=== PATIENT | male | born 1945 | race Caucasian/White ===

== ENCOUNTER 2022-05-20 17:01 | Inpatient (IN) | payer MEDICARE ==
[~2022-05-20] VITALS: Ht 172.7 cm; Wt 106.0 kg
[2022-05-20] MEDS ORDERED: ALLO100T25 PO (17:44)
[2022-05-20] MEDS ORDERED: POTA-192 PO (17:44)
[2022-05-20] MEDS ORDERED: MAGN200T PO (17:44)
[2022-05-20] MEDS ORDERED: LOVA40TA2 PO (17:44)
[2022-05-20] MEDS ORDERED: INSU100V41 SUBCUT (17:44)
[2022-05-20] MEDS ORDERED: ATEN-169 PO (17:44)
[2022-05-20] MEDS ORDERED: ONDA4TAB12 PO (17:44)
[2022-05-20] MEDS ORDERED: LOSA25TA96 PO (17:44)
[2022-05-20] MEDS ORDERED: LEVO100T PO (17:44)
[2022-05-20] MEDS ORDERED: SOUR1000 PO (17:59)
[2022-05-20] MEDS ORDERED: MAGN250T11 PO (17:59)
[2022-05-20] MEDS ORDERED: FURO-150 PO (17:59)
[2022-05-20] MEDS ORDERED: ATOR40TA PO (17:59)
[2022-05-20] MEDS ORDERED: ALLO100T PO (17:59)
[2022-05-20] MEDS ORDERED: INSU100C4 SQ (18:01)
[2022-05-20 18:29] LABS: ALANINE AMINOTRANSFERASE 143 U/L (12-78); ALBUMIN 2.6 G/DL (3.4-5.0); ALBUMIN/GLOBULIN RATIO 0.6 (1.1-1.5); ALKALINE PHOSPHATASE 640 IU/L (46-116); ANION GAP 8 (8-16); ASPARTATE AMINO TRANSFERASE 147 U/L (10-37); BILIRUBIN,TOTAL 2.6 MG/DL (0.1-1.0); BLOOD UREA NITROGEN 66 MG/DL (7-18); BUN/CREATININE RATIO 18.3 (5.4-32.0); CALCIUM 8.5 MG/DL (8.5-10.1); CHLORIDE 108 MMOL/L (99-107); GLUCOSE 148 MG/DL (70-104); LIPASE 255 U/L (73-393); POTASSIUM 4.2 MMOL/L (3.5-5.1); SODIUM 141 MMOL/L (135-145); TOTAL CARBON DIOXIDE 24.9 MMOL/L (24-32); TOTAL PROTEIN 6.9 G/DL (6.4-8.2); eGFR 16 ML/MIN
[2022-05-20 18:35] LABS: BASOPHILS % (AUTO) 0.2 % (0-1); EOSINOPHILS % (AUTO) 0.1 % (0-6); HEMATOCRIT 33.7 % (42.0-52.0); HEMOGLOBIN 11.1 g/dl (14.0-17.9); LYMPHOCYTES # (AUTO) 0.6 X10'3 (1.1-4.8); LYMPHOCYTES % (AUTO) 4.1 % (21-51); MEAN CORPUSCULAR HEMOGLOBIN 31.3 PG (27.0-31.0); MEAN PLATELET VOLUME 8.4 FL (7.4-10.4); MONOCYTES # (AUTO) 0.7 X10'3 (0-0.9); MONOCYTES % (AUTO) 4.5 % (2-12); NEUTROPHILS # (AUTO) 14.1 X10'3 (1.8-7.7); NEUTROPHILS % (AUTO) 91.1 % (42-75); PLATELET COUNT 276 X10'3 (140-440); RED BLOOD COUNT 3.55 X10'6 (4.70-6.10); RED CELL DISTRIBUTION WIDTH 14.5 % (11.5-14.5); WHITE BLOOD COUNT 15.4 X10'3 (4.5-11.0)
--- NOTE | 2022-05-20 18:38 | NUR ---
Pt endorsed to Renetta GILMAN.
[2022-05-20] MEDS ORDERED: magnesium hydroxide 30ml (MOM) UD suspension PO PRN (19:50)
[2022-05-20] MEDS ORDERED: ondansetron/PF 4mg/2ml inj IV PRN (19:50)
[2022-05-20] MEDS ORDERED: magnesium Cl slow-release 64mg tablet PO PRN (19:50)
[2022-05-20] MEDS ORDERED: morphine 2 MG/ML inj. syringe IV PRN ×2 (19:50)
[2022-05-20] MEDS ORDERED: acetaminophen 325mg tablet PO PRN ×2 (19:50)
[2022-05-20] MEDS ORDERED: HYDROcodone/acetaminophen 10/325mg tab PO PRN (19:50)
[2022-05-20] MEDS ORDERED: potassium Cl 20 mEq SR tablet PO PRN ×2 (19:50)
[2022-05-20] MEDS ORDERED: magnesium 4gm in 100ml NS 100 ML IV PRN (19:50)
[2022-05-20] MEDS ORDERED: HYDROcodone/acetaminophen 5mg/325mg tablet PO PRN (19:50)
[2022-05-20] MEDS ORDERED: mag hydrox/Alum hydrox/simeth 30ml oral suspension PO PRN (19:50)
[2022-05-20] MEDS ORDERED: potassium Cl 40MEQ/1/2NS 520ml 520 ML IV PRN (19:50)
[2022-05-20] MEDS: K and/or MAG REPLACEMENT MC SCH (20:00)
[2022-05-20] MEDS ORDERED: piperacillin/tazo 3.375gm/50ml 50 ML IV SCH (20:00)
[2022-05-20] MEDS ORDERED: DEXTROSE 15 GM of carb/4 tabs (each vial/BOTTLE has 4 tablets) PO PRN ×2 (20:15)
[2022-05-20] MEDS ORDERED: dextrose 50%-water 50ml dispensing syringe IV PRN ×2 (20:15)
[2022-05-20] MEDS ORDERED: MESSAGE TO PHARMACY PO ONE (20:15)
[2022-05-20] MEDS ORDERED: glucagon, human recombinant 1mg kit SUBCUT PRN (20:15)
[2022-05-20] MEDS ORDERED: temazepam 15mg capsule PO PRN (21:00)
--- NOTE | 2022-05-20 21:01 | NUR ---
Received report from Danny Jackson in ER. Awaiting pt arrival Addendum: 05/20/22 at 2102 by Juan Steen RN Amended: Links added.
[2022-05-20] MEDS: normal saline 1000ml 1,000 ML IV SCH (21:05)
[2022-05-20] MEDS: metroNIDAZOLE-Flagyl 500mg/NS 100 ML IV SCH (21:05)
--- NOTE | 2022-05-20 21:25 | NUR ---
rECEIVED PT TO ROOM 344B. SIG OTHER AT BEDSIDE, ORIENTED TO ROOM AND ROUTINE. Addendum: 05/20/22 at 2319 by Juan Steen RN Amended: Links added.
[2022-05-20 22:00] VITALS: BP 114/56
[2022-05-20] MEDS: docusate sod 100mg capsule PO SCH (22:00)
[2022-05-20] MEDS: heparin, porcine 5000 units/ml vial SQ SCH (22:01)
[2022-05-20] MEDS: insulin glargine (Lantus) pen - multi-dose SQ SCH (22:01)
[2022-05-20 23:24] LABS: HEMOGLOBIN A1C 7.8 % (4.5-6.2)
[2022-05-21] VITALS (16 sets, daily range): BP systolic 102–155; BP diastolic 44–76
[2022-05-21] MEDS ORDERED: piperacillin/tazo 3.375gm/50 ML IV SCH (04:00)
[2022-05-21] MEDS: normal saline 1000ml 1,000 ML IV SCH ×2 (05:38→21:11)
[2022-05-21 06:02] LABS: ALANINE AMINOTRANSFERASE 135 U/L (12-78); ALBUMIN 2.3 G/DL (3.4-5.0); ALBUMIN/GLOBULIN RATIO 0.6 (1.1-1.5); ALKALINE PHOSPHATASE 500 IU/L (46-116); ANION GAP 7 (8-16); ASPARTATE AMINO TRANSFERASE 128 U/L (10-37); BILIRUBIN,TOTAL 3.1 MG/DL (0.1-1.0); BLOOD UREA NITROGEN 64 MG/DL (7-18); BUN/CREATININE RATIO 17.3 (5.4-32.0); CALCIUM 8.5 MG/DL (8.5-10.1); CHLORIDE 111 MMOL/L (99-107); POTASSIUM 4.3 MMOL/L (3.5-5.1); SODIUM 143 MMOL/L (135-145); TOTAL CARBON DIOXIDE 24.9 MMOL/L (24-32); eGFR 16 ML/MIN
[2022-05-21 06:07] LABS: GLUCOSE 46 MG/DL (70-104)
[2022-05-21 06:09] LABS: BASOPHILS % (AUTO) 0.3 % (0-1); EOSINOPHILS # (AUTO) 0.1 X10'3 (0-0.9); EOSINOPHILS % (AUTO) 0.7 % (0-6); HEMATOCRIT 30.9 % (42.0-52.0); HEMOGLOBIN 10.1 g/dl (14.0-17.9); LYMPHOCYTES # (AUTO) 1.6 X10'3 (1.1-4.8); LYMPHOCYTES % (AUTO) 11.4 % (21-51); MEAN CORPUSCULAR HEMOGLOBIN 30.7 PG (27.0-31.0); MEAN CORPUSCULAR HGB CONC 32.5 g/dL (33.0-36.5); MEAN CORPUSCULAR VOLUME 94.5 FL (78-98); MEAN PLATELET VOLUME 9.2 FL (7.4-10.4); MONOCYTES # (AUTO) 0.8 X10'3 (0-0.9); MONOCYTES % (AUTO) 5.9 % (2-12); NEUTROPHILS # (AUTO) 11.3 X10'3 (1.8-7.7); NEUTROPHILS % (AUTO) 81.7 % (42-75); PLATELET COUNT 241 X10'3 (140-440); RED BLOOD COUNT 3.27 X10'6 (4.70-6.10); RED CELL DISTRIBUTION WIDTH 14.3 % (11.5-14.5); WHITE BLOOD COUNT 13.9 X10'3 (4.5-11.0)
--- NOTE | 2022-05-21 06:19 | NUR ---
LAB CALLED CRITICAL GLUCOSE OF 46, ACCU CHECK 32. PT AWAKE AND ALERT ASSYMPTOMATIC. DEXTROSE TO BE GIVEN. Addendum: 05/21/22 at 0620 by Juan Steen RN Amended: Links added.
--- NOTE | 2022-05-21 06:42 | NUR ---
Problems reprioritized. Patient report given, questions answered & plan of care reviewed with MONCHO Florian. Addendum: 05/21/22 at 0643 by Juan Steen RN Amended: Links added.
[2022-05-21] MEDS: heparin, porcine 5000 units/ml vial SQ SCH ×2 (07:44→19:46)
[2022-05-21] MEDS: ciprofloxacin lact 400MG/200ML 200 ML IV SCH ×2 (07:54→19:44)
[2022-05-21] MEDS: K and/or MAG REPLACEMENT MC SCH ×2 (08:00→20:00)
--- NOTE | 2022-05-21 09:59 | NUR ---
DM Consult: Pt hx T1DM A1C 7.8% appropriate given advanced age; DM ed deferred at this time. Addendum: 05/21/22 at [address] Amended: Links added.
[2022-05-21] MEDS ORDERED: iohexol 300mg/ml 100ml inj. ONE (10:39)
[2022-05-21] MEDS ORDERED: LIDOcaine Viscous 15ml cup ONE (10:40)
[2022-05-21] MEDS ORDERED: fentaNYL/PF 50MCG/1 ML 2ML syringe ONE (10:40)
[2022-05-21] MEDS ORDERED: MIDAZolam 1 MG/ML 5ML VIAL ONE (10:40)
[2022-05-21] MEDS ORDERED: glucagon, human recombinant 1mg kit ONE (10:40)
[2022-05-21] MEDS: pantoprazole 40MG/NS 100ML BAG 100 ML IV SCH (13:51)
[2022-05-21] MEDS ORDERED: pantoprazole 40MG/NS 100ML BAG 100 ML IV SCH (14:00)
[2022-05-21] MEDS: metroNIDAZOLE-Flagyl 500mg/NS 100 ML IV SCH ×2 (15:26→19:44)
[2022-05-21] MEDS: losartan 25mg tablet PO SCH (15:29)
[2022-05-21] MEDS: docusate sod 100mg capsule PO SCH ×2 (15:29→19:44)
[2022-05-21] MEDS: atenolol 50mg tablet PO SCH (15:29)
[2022-05-21] MEDS: levoTHYROXINE 100mcg tablet PO SCH (15:29)
--- NOTE | 2022-05-21 18:30 | NUR ---
Patient in room [facility]. I have received report from MONCHO Florian and had the opportunity to ask questions and assume patient care. Addendum: 05/22/22 at 0157 by Juan Steen RN Amended: Links added.
--- NOTE | 2022-05-21 18:34 | NUR ---
Pt states starting to feel light headed, declined glucose tabs, pt is drinking juice Addendum: 05/21/22 at 1858 by Juan Steen RN Amended: Links added.
--- NOTE | 2022-05-21 19:33 | NUR ---
pt assymptomatic, did not finish all glucose tbs, states just ate them now. eating clear liq diet. Addendum: 05/21/22 at 3 by Juan Steen RN Amended: Links added.
[2022-05-21] MEDS: insulin glargine (Lantus) pen - multi-dose SQ SCH (21:00)
[2022-05-21] MEDS ORDERED: HYDROmorphone inj. 0.5 MG/0.5 ML DISP.SYRIN IV PRN (21:15)
[2022-05-21] MEDS ORDERED: HYDROmorphone 1 mg/ml syringe IV PRN (21:15)
[2022-05-21] MEDS: dextrose 5%-1/2 normal saline 1,000 ML IV SCH (22:28)
[2022-05-22] VITALS (22 sets, daily range): BP systolic 124–172; BP diastolic 49–73
[2022-05-22 01:47] LABS: COLOR,URINE YELLOW (Yellow); GLUCOSE, URINE 100 mg/dl (Neg); KETONES,URINE NEGATIVE (Neg); LEUKOCYTE ESTERASE ,URINE NEGATIVE (Neg); NITRITES, URINE NEGATIVE (Neg); OCCULT BLOOD,URINE TRACE-INTACT (Neg); PH,URINE 5.5 (4.8-8.0); PROTEIN,URINE 100 mg/dl (Neg); UROBILINOGEN,URINE 0.2 E.U/dL (0.2-1.0)
[2022-05-22 01:54] LABS: UA COLLECTION TYPE VOIDED
[2022-05-22 01:55] LABS: CLARITY,URINE SLIGHTLY CLOUDY (Clear)
[2022-05-22 01:56] LABS: BACTERIA,URINE FEW /HPF (Neg); FINE GRANULAR CAST 0-3 /LPF (NEGATIVE); MUCUS STRANDS FEW /LPF (Neg); RBC,URINE 0-2 /HPF (0-2); SQUAMOUS EPITHELIAL CELL,UR FEW /LPF (FEW); WBC,URINE 0-4 /HPF (0-4)
[2022-05-22 06:04] LABS: BASOPHILS % (AUTO) 0.6 % (0-1); EOSINOPHILS # (AUTO) 0.1 X10'3 (0-0.9); EOSINOPHILS % (AUTO) 1.9 % (0-6); HEMATOCRIT 28.5 % (42.0-52.0); HEMOGLOBIN 9.5 g/dl (14.0-17.9); LYMPHOCYTES # (AUTO) 1.1 X10'3 (1.1-4.8); LYMPHOCYTES % (AUTO) 19.2 % (21-51); MEAN CORPUSCULAR HEMOGLOBIN 31.7 PG (27.0-31.0); MEAN CORPUSCULAR HGB CONC 33.3 g/dL (33.0-36.5); MEAN CORPUSCULAR VOLUME 95.1 FL (78-98); MEAN PLATELET VOLUME 8.6 FL (7.4-10.4); MONOCYTES # (AUTO) 0.4 X10'3 (0-0.9); NEUTROPHILS # (AUTO) 3.8 X10'3 (1.8-7.7); NEUTROPHILS % (AUTO) 70.3 % (42-75); PLATELET COUNT 216 X10'3 (140-440); WHITE BLOOD COUNT 5.5 X10'3 (4.5-11.0)
[2022-05-22 06:13] LABS: APTT 24 SECONDS (22-32)
--- NOTE | 2022-05-22 06:15 | NUR ---
Problems reprioritized. Patient report given, questions answered & plan of care reviewed with MONCHO Florian. Addendum: 05/22/22 at 0616 by Juan Steen RN Amended: Links added.
[2022-05-22 06:27] LABS: ALANINE AMINOTRANSFERASE 109 U/L (12-78); ALBUMIN 2.1 G/DL (3.4-5.0); ALBUMIN/GLOBULIN RATIO 0.6 (1.1-1.5); ALKALINE PHOSPHATASE 436 IU/L (46-116); ANION GAP 7 (8-16); ASPARTATE AMINO TRANSFERASE 83 U/L (10-37); BILIRUBIN,TOTAL 2.8 MG/DL (0.1-1.0); BLOOD UREA NITROGEN 56 MG/DL (7-18); BUN/CREATININE RATIO 14.2 (5.4-32.0); CALCIUM 7.8 MG/DL (8.5-10.1); CHLORIDE 108 MMOL/L (99-107); CREATININE 3.95 MG/DL (0.60-1.10); GLUCOSE 255 MG/DL (70-104); POTASSIUM 4.1 MMOL/L (3.5-5.1); SODIUM 139 MMOL/L (135-145); TOTAL CARBON DIOXIDE 23.9 MMOL/L (24-32); TOTAL PROTEIN 5.7 G/DL (6.4-8.2); eGFR 15 ML/MIN
[2022-05-22] MEDS: dextrose 5%-1/2 normal saline 1,000 ML IV SCH ×2 (07:15→17:15)
[2022-05-22] MEDS ORDERED: allopurinol 100mg tablet PO SCH (08:00)
[2022-05-22] MEDS: atenolol 50mg tablet PO SCH (08:00)
[2022-05-22] MEDS: K and/or MAG REPLACEMENT MC SCH ×2 (08:00→20:00)
[2022-05-22] MEDS: heparin, porcine 5000 units/ml vial SQ SCH ×2 (08:00→20:33)
[2022-05-22] MEDS: metroNIDAZOLE-Flagyl 500mg/NS 100 ML IV SCH ×2 (08:27→20:33)
[2022-05-22] MEDS: levoTHYROXINE 100mcg tablet PO SCH (08:29)
[2022-05-22] MEDS: losartan 25mg tablet PO SCH (08:30)
[2022-05-22] MEDS: docusate sod 100mg capsule PO SCH ×2 (08:30→20:33)
[2022-05-22] MEDS ORDERED: INDOCYANINE GREEN 25 MG/10 ML VIAL IV ONE (08:45)
[2022-05-22] MEDS: pantoprazole 40MG/NS 100ML BAG 100 ML IV SCH (10:33)
[2022-05-22] MEDS: ciprofloxacin lact 400MG/200ML 200 ML IV SCH ×2 (10:57→20:33)
[2022-05-22] MEDS ORDERED: LIDOcaine 1% 30ml preserv. free vial ONE (11:24)
[2022-05-22] MEDS ORDERED: BUPIVAcaine 0.5% inj/PF 30 ML ONE (11:24)
[2022-05-22] MEDS ORDERED: morphine 2 MG/ML inj. syringe IV PRN (11:25)
[2022-05-22] MEDS ORDERED: proCHLORperazine 10 MG/2 ml inj IV PRN (11:25)
[2022-05-22] MEDS ORDERED: ondansetron/PF 4mg/2ml inj IV PRN (11:25)
[2022-05-22] MEDS ORDERED: meperidine/PF 25mg/ml syringe IV PRN ×3 (11:25)
[2022-05-22] MEDS ORDERED: ringers solution, lacted 1,000 ML IV SCH (11:25)
[2022-05-22] MEDS ORDERED: morphine 4 MG/ML inj SYRINge IV PRN (11:25)
[2022-05-22] MEDS ORDERED: fentaNYL/PF 50MCG/1 ML 2ML syringe ONE (11:31)
[2022-05-22] MEDS ORDERED: propofol inj 20 ML IV ONE (11:31)
[2022-05-22] MEDS ORDERED: rocuronium 10mg/ml inj IV ONE (11:31)
[2022-05-22] MEDS ORDERED: midazolam 1 mg/ML 2ml injection ONE (11:31)
[2022-05-22] MEDS ORDERED: sevoflurane 250ml liquid IH ONE (11:48)
--- NOTE | 2022-05-22 12:03 | NUR ---
MESSAGE SENT TO DR SCRUGGS, CALL FROM [facility], SURG [address], R 344B FYI: POSITIVE BLOOD CULTURES FROM [facility]...GRAM NEGATIVE RODS. SENSITIVITY SHOULD BE AVAILABLE TOMORROW.
--- NOTE | 2022-05-22 12:08 | NUR ---
CALLED OR TO DR CURRIE SPOKE WITH DEBRA IVAN TO RELAY THAT [facility] CALLED ABOUT POSITIVE BLOOD CULTURES.
[2022-05-22] MEDS ORDERED: neostigmine methylsulfate 1 MG/ML 10ml vial ONE (13:40)
[2022-05-22] MEDS ORDERED: glycopyrrolate 0.2mg/ml inj ONE (13:40)
[2022-05-22] MEDS ORDERED: BUPIVAcaine 0.5% inj/PF 30 ml vial IJ ONE (13:50)
--- NOTE | 2022-05-22 14:05 | NUR ---
PT ARRIVED TO VIA BED ACCOMPANIED BY DR RAMOS-ANESTHESIA REPORT GIVEN, PT RESPONDS TO VERBAL STIMULI, VSS, LAP SITES X4 WITH ANDRZEJ DRAIN TO RLQ HAS GOOD SUCTION-CDI, MINIMAL SEROSANGINE OUTPUT FORM ANDRZEJ, SCDS ON.
[2022-05-22] MEDS ORDERED: acetaminophen 1,000mg/100ml IV 100 ML IV ONE (14:20)
[2022-05-22] MEDS ORDERED: naloxone 0.4 mg/ml inj IV PRN (14:30)
[2022-05-22] MEDS ORDERED: HYDROcodone/acetaminophen 10/325mg tab PO PRN (14:30)
[2022-05-22] MEDS ORDERED: HYDROcodone/acetaminophen 5mg/325mg tablet PO PRN (14:30)
--- NOTE | 2022-05-22 15:45 | NUR ---
PT DID WELL, SLEPT THRU OUT RECOVERY TIME WITHOUT PAIN, LAP SITES REMAIN UNCHANGED WITH ANDRZEJ INTACT-20CC LIGHT RED DRAINAGE EMPTIED, VSS, REPORT CALLED TO NISREEN IVAN-ALL QUESTIONS ANSWERED, TAKEN VIA BED BACK TO ROOM 344-BED LOW AND LOCKED, CALL LIGHT IN REACH.
--- NOTE | 2022-05-22 17:07 | NUR ---
PAGER ID: [phone] MESSAGE: 344b No longer NPO, glucose elevated. Change IV fluid? Chiqui [id number]
--- NOTE | 2022-05-22 18:22 | NUR ---
Report to Kena IVAN
--- NOTE | 2022-05-22 18:30 | NUR ---
Patient in room [facility] 344. I have received report from MONCHO Florian and had the opportunity to ask questions and assume patient care.
[2022-05-22] MEDS: insulin glargine (Lantus) pen - multi-dose SQ SCH (21:45)
[2022-05-22] MEDS: insulin Lispro (HumaLOG) vial - multi-dose SQ SCH (21:46)
[2022-05-23] MEDS: normal saline 1000ml 1,000 ML IV SCH ×2 (00:34→10:10)
[2022-05-23 02:00] VITALS: BP 179/72
[2022-05-23 05:53] LABS: BASOPHILS % (AUTO) 0.3 % (0-1); EOSINOPHILS % (AUTO) 0.5 % (0-6); HEMATOCRIT 30.3 % (42.0-52.0); HEMOGLOBIN 9.8 g/dl (14.0-17.9); LYMPHOCYTES # (AUTO) 1.2 X10'3 (1.1-4.8); LYMPHOCYTES % (AUTO) 13.6 % (21-51); MEAN CORPUSCULAR HEMOGLOBIN 31.1 PG (27.0-31.0); MEAN CORPUSCULAR HGB CONC 32.4 g/dL (33.0-36.5); MEAN CORPUSCULAR VOLUME 96.1 FL (78-98); MEAN PLATELET VOLUME 8.4 FL (7.4-10.4); MONOCYTES # (AUTO) 0.4 X10'3 (0-0.9); NEUTROPHILS # (AUTO) 7.2 X10'3 (1.8-7.7); NEUTROPHILS % (AUTO) 80.6 % (42-75); PLATELET COUNT 234 X10'3 (140-440); RED BLOOD COUNT 3.15 X10'6 (4.70-6.10); RED CELL DISTRIBUTION WIDTH 15.3 % (11.5-14.5); WHITE BLOOD COUNT 8.9 X10'3 (4.5-11.0)
[2022-05-23 06:20] LABS: ALANINE AMINOTRANSFERASE 90 U/L (12-78); ALBUMIN 2.1 G/DL (3.4-5.0); ALBUMIN/GLOBULIN RATIO 0.5 (1.1-1.5); ALKALINE PHOSPHATASE 420 IU/L (46-116); ANION GAP 12 (8-16); ASPARTATE AMINO TRANSFERASE 56 U/L (10-37); BILIRUBIN,TOTAL 1.4 MG/DL (0.1-1.0); BLOOD UREA NITROGEN 49 MG/DL (7-18); BUN/CREATININE RATIO 13.8 (5.4-32.0); CALCIUM 8.5 MG/DL (8.5-10.1); CHLORIDE 108 MMOL/L (99-107); CREATININE 3.54 MG/DL (0.60-1.10); GLUCOSE 270 MG/DL (70-104); POTASSIUM 4.4 MMOL/L (3.5-5.1); SODIUM 139 MMOL/L (135-145); TOTAL CARBON DIOXIDE 19.4 MMOL/L (24-32); TOTAL PROTEIN 6.1 G/DL (6.4-8.2); eGFR 17 ML/MIN
--- NOTE | 2022-05-23 06:42 | NUR ---
Problems reprioritized. Patient report given, questions answered & plan of care reviewed with MONCHO Florian.
[2022-05-23 07:30] VITALS: BP 168/69
[2022-05-23] MEDS: heparin, porcine 5000 units/ml vial SQ SCH (07:44)
[2022-05-23] MEDS: losartan 25mg tablet PO SCH (07:45)
[2022-05-23] MEDS: docusate sod 100mg capsule PO SCH (07:45)
[2022-05-23] MEDS: levoTHYROXINE 100mcg tablet PO SCH (07:45)
[2022-05-23] MEDS: metroNIDAZOLE-Flagyl 500mg/NS 100 ML IV SCH (07:46)
[2022-05-23] MEDS: atenolol 50mg tablet PO SCH (07:46)
[2022-05-23] MEDS: K and/or MAG REPLACEMENT MC SCH (08:00)
[2022-05-23] MEDS: insulin Lispro (HumaLOG) vial - multi-dose SQ SCH (09:32)
[2022-05-23] MEDS: pantoprazole 40MG/NS 100ML BAG 100 ML IV SCH (09:32)
[2022-05-23] MEDS: ciprofloxacin lact 400MG/200ML 200 ML IV SCH (09:45)
[2022-05-23] MEDS ORDERED: diphenhydrAMINE 50 mg/ml inj IV PRN (10:30)
[2022-05-23 11:30] VITALS: BP 166/67
[2022-05-23] MEDS ORDERED: HYDR-3965 PO ×2 (12:06→12:07)
[2022-05-23] MEDS ORDERED: AMOX-117 PO ×2 (14:34)
[2022-05-23] MEDS ORDERED: CIPR-202 PO (14:38)
[2022-05-23] MEDS ORDERED: metroNIDAZOLE 500mg tablet PO SCH (20:00)
[2022-05-23] MEDS ORDERED: ciprofloxacin 250mg tablet PO SCH (22:00)
[2022-05-24] MEDS ORDERED: pantoprazole 40mg Tablet.DR PO SCH (07:30)
== END 2022-05-23 15:00 | disposition home or self-care (01) | DRG 418 ==
LOC: ER 17:02 → UNDOADMIN 19:54 → ED HOLD 19:54 → SUR 3N 21:34 → ED HOLD 05-21 08:24 → SUR 3N 05-21 08:24
PROVIDERS: ADMIT Internal Medicine; ATTEND Family Medicine
PROC: 8E0W4CZ Robotic Assisted Procedure of Trunk Region, Percutaneous Endoscopic Approach (ICD-10-PCS; 2022-05-22)
PROC: BF532Z0 Other Imaging of Gallbladder and Bile Ducts using Fluorescing Agent, Intraoperative (ICD-10-PCS; 2022-05-22)
PROC: 0FT44ZZ Resection of Gallbladder, Percutaneous Endoscopic Approach (ICD-10-PCS; principal; 2022-05-22 11:48)
DX: K80.63 Calculus of gallbladder and bile duct with acute cholecystitis with obstruction (principal); N17.9 Acute kidney failure, unspecified; N18.4 Chronic kidney disease, stage 4 (severe); E03.9 Hypothyroidism, unspecified; E78.5 Hyperlipidemia, unspecified; I12.9 Hypertensive chronic kidney disease with stage 1 through stage 4 chronic kidney disease, or unspecified chronic kidney disease; R16.0 Hepatomegaly, not elsewhere classified; K82.8 Other specified diseases of gallbladder; M1A.9XX0 Chronic gout, unspecified, without tophus (tophi); Z83.3 Family history of diabetes mellitus; Z79.899 Other long term (current) drug therapy; Z79.4 Long term (current) use of insulin; E10.22 Type 1 diabetes mellitus with diabetic chronic kidney disease
CPT/HCPCS: 36415; 43262; 43264; 71045; 74181; 76770; 80053; 81001; 82043; 82570; 82948; 83036; 83605; 83690; 84300; 84443; 85025; 85610; 85730; 87040; 87081; 88304; 96361; 96365; 96375; 97116; 97161; 99152; 99153; 99285; A4215; A4615; A4618; A4620; A7000; C1769; C9113; G0378; J0131; J0744; J1200; J1610; J1644; J1815; J2250; J2270; J2704; J2710; J3010; J3490; J7030; J7120; Q9967; S0020